=== PATIENT | male | born 1985 | race American Indian/Alaskan Native ===

== ENCOUNTER 2019-01-17 12:03 | Emergency (ER) | payer SELFPAY ==
[2019-01-17 12:08] VITALS: BP 106/79
--- NOTE | 2019-01-17 12:11 | Emergency Department Report ---
ED ENT HPI - General Chief complaint: Dental/Oral Stated complaint: LFT SIDE TOOTHACHE Source: patient Mode of arrival: Ambulatory Limitations: No Limitations - History of Present Illness Initial comments: 33 y/o male comes in for left lower tooth pain time 1 week with 1 day history of abscess. Denies any fever. Denies any trauma. No pmh . MD complaint: tooth pain Onset/Timin -: days(s) Location: tooth # (18) Severity scale (0 -10): 8 Consistency: constant Improves with: none Worsens with: none Context- Dental: history of dental caries, poor dental care - Related Data Previous Rx's Medication Instructions Recorded Last Taken Type Amoxicillin [Amoxicillin TAB] 875 mg PO BID #20 tablet 01/17/19 Unknown Rx Ibuprofen [Motrin 600 MG tab] 600 mg PO Q8H PRN #30 tablet 01/17/19 Unknown Rx Allergies Allergy/AdvReac Type Severity Reaction Status Date / Time No Known Allergies Allergy Unverified 01/17/19 12:05 ED Dental HPI - General Chief complaint: Dental/Oral Stated complaint: LFT SIDE TOOTHACHE Source: patient Mode of arrival: Ambulatory Limitations: No Limitations - Related Data Previous Rx's Medication Instructions Recorded Last Taken Type Amoxicillin [Amoxicillin TAB] 875 mg PO BID #20 tablet 01/17/19 Unknown Rx Ibuprofen [Motrin 600 MG tab] 600 mg PO Q8H PRN #30 tablet 01/17/19 Unknown Rx Allergies Allergy/AdvReac Type Severity Reaction Status Date / Time No Known Allergies Allergy Unverified 01/17/19 12:05 ED Review of Systems ROS: Stated complaint: LFT SIDE TOOTHACHE Other details as noted in HPI Comment: All other systems reviewed and negative ED Past Medical Hx - Medications Home Medications: Home Medications Medication Instructions Recorded Confirmed Last Taken Type Amoxicillin [Amoxicillin TAB] 875 mg PO BID #20 tablet 01/17/19 Unknown Rx Ibuprofen [Motrin 600 MG tab] 600 mg PO Q8H PRN #30 tablet 01/17/19 Unknown Rx ED Physical Exam - General Limitations: No Limitations General appearance: alert, in no apparent distress - Head Head exam: Present: atraumatic, normocephalic - Eye Eye exam: Present: normal appearance, EOMI - ENT ENT exam: Present: mucous membranes moist - Expanded ENT Exam Expanded Teeth exam: Present: dental caries, dental tenderness # (18), gingival enlargement - Neurological Exam Neurological exam: Present: alert, oriented X3, normal gait - Skin Skin exam: Present: warm, dry, intact, normal color. Absent: rash ED Medical Decision Making - Medical Decision Making 33 y/o male comes in for toothache. Patient will be placed on amoxicillin and pain medication. Critical care attestation.: If time is entered above; I have spent that time in minutes in the direct care of this critically ill patient, excluding procedure time. ED Disposition Clinical Impression: Dental abscess Disposition: TO HOME OR SELFCARE Is pt being admited?: No Does the pt Need Aspirin: No Condition: Stable Instructions: Dental Abscess (ED) Additional Instructions: Complete antibiotic and pain medication as prescribed. Prescriptions: Amoxicillin [Amoxicillin TAB] 875 mg PO BID #20 tablet Ibuprofen [Motrin 600 MG tab] 600 mg PO Q8H PRN #30 tablet PRN Reason: Pain Referrals: [facility] [Outside] - 3-5 Days [facility] [Outside] - 3-5 Days [facility] [Outside] - 3-5 Days
== END 2019-01-17 12:35 | disposition home or self-care (01) ==
LOC: ED 12:03
DX: K04.7 Periapical abscess without sinus (principal)
CPT/HCPCS: 99282

== ENCOUNTER 2019-11-24 11:21 | Emergency (ER) | payer SELFPAY ==
[2019-11-24 11:56] VITALS: BP 175/112
--- NOTE | 2019-11-24 12:09 | Emergency Department Report ---
ED ENT HPI - General Chief complaint: Dental/Oral Stated complaint: MOUTH PAIN Time Seen by Provider: 11/24/19 12:05 Source: patient Mode of arrival: Ambulatory Limitations: No Limitations - History of Present Illness Initial comments: pt is a 34 yo male who presents to the ED with c/o left lower dental pain that began yesterday. he states he also has pain and mild swelling to the left lower jaw. he has not seen a dentist since childhood. he denies any fever, n/v/d. he is tolerating PO intake and his secretions. he denies any PMHx. he denies any allergies to meds. - Related Data Previous Rx's Medication Instructions Recorded Last Taken Type Amoxicillin [Amoxicillin TAB] 875 mg PO BID #20 tablet 01/17/19 Unknown Rx Ibuprofen [Motrin 600 MG tab] 600 mg PO Q8H PRN #30 tablet 01/17/19 Unknown Rx Hydrocort/Pramoxine [Proctofoam-Hc] 1 applicatio [place] BID #1 can 01/29/19 Unknown Rx Lidocaine [Lidocaine Cream] 1 applicatio TP TID PRN #1 tube 01/29/19 Unknown Rx Ibuprofen [Motrin 600 MG tab] 600 mg PO Q8H PRN #14 tablet 11/24/19 Unknown Rx Penicillin Vk [Veetids TAB] 500 mg PO QID 7 Days #56 tablet 11/24/19 Unknown Rx Allergies Allergy/AdvReac Type Severity Reaction Status Date / Time No Known Allergies Allergy Verified 01/17/19 12:08 ED Dental HPI - General Chief complaint: Dental/Oral Stated complaint: MOUTH PAIN Time Seen by Provider: 11/24/19 12:05 Source: patient Mode of arrival: Ambulatory Limitations: No Limitations - Related Data Previous Rx's Medication Instructions Recorded Last Taken Type Amoxicillin [Amoxicillin TAB] 875 mg PO BID #20 tablet 01/17/19 Unknown Rx Ibuprofen [Motrin 600 MG tab] 600 mg PO Q8H PRN #30 tablet 01/17/19 Unknown Rx Hydrocort/Pramoxine [Proctofoam-Hc] 1 applicatio [place] BID #1 can 01/29/19 Unknown Rx Lidocaine [Lidocaine Cream] 1 applicatio TP TID PRN #1 tube 01/29/19 Unknown Rx Ibuprofen [Motrin 600 MG tab] 600 mg PO Q8H PRN #14 tablet 11/24/19 Unknown Rx Penicillin Vk [Veetids TAB] 500 mg PO QID 7 Days #56 tablet 11/24/19 Unknown Rx Allergies Allergy/AdvReac Type Severity Reaction Status Date / Time No Known Allergies Allergy Verified 01/17/19 12:08 ED Review of Systems ROS: Stated complaint: MOUTH PAIN Other details as noted in HPI Comment: All other systems reviewed and negative ED Past Medical Hx - Past Medical History Previous Medical History?: No - Surgical History Past Surgical History?: No - Social History Smoking Status: Current Every Day Smoker Substance Use Type: None - Medications Home Medications: Home Medications Medication Instructions Recorded Confirmed Last Taken Type Amoxicillin [Amoxicillin TAB] 875 mg PO BID #20 tablet 01/17/19 Unknown Rx Ibuprofen [Motrin 600 MG tab] 600 mg PO Q8H PRN #30 tablet 01/17/19 Unknown Rx Hydrocort/Pramoxine [Proctofoam-Hc] 1 applicatio [place] BID #1 can 01/29/19 Unknown Rx Lidocaine [Lidocaine Cream] 1 applicatio TP TID PRN #1 tube 01/29/19 Unknown Rx Ibuprofen [Motrin 600 MG tab] 600 mg PO Q8H PRN #14 tablet 11/24/19 Unknown Rx Penicillin Vk [Veetids TAB] 500 mg PO QID 7 Days #56 tablet 11/24/19 Unknown Rx ED Physical Exam - General Limitations: No Limitations General appearance: alert, in no apparent distress - Head Head exam: Present: atraumatic, normocephalic - Eye Eye exam: Present: normal appearance - ENT ENT exam: Present: mucous membranes moist, other (very poor dentition, several missing teeth and dental caries, mild area of induration present to the left lower gum line, uvula is midline, no uvular edema or deviation, no muffled voice, no trismus, no tongue elevation, no submandibular swelling) - Respiratory Respiratory exam: Present: normal lung sounds bilaterally. Absent: respiratory distress, wheezes, rales, rhonchi, stridor, chest wall tenderness, accessory muscle use, decreased breath sounds, prolonged expiratory - Cardiovascular Cardiovascular Exam: Present: regular rate, normal rhythm, normal heart sounds. Absent: systolic murmur, diastolic murmur, rubs, gallop - Neurological Exam Neurological exam: Present: alert, oriented X3 - Psychiatric Psychiatric exam: Present: normal affect, normal mood - Skin Skin exam: Present: warm, dry, intact ED Course Vital Signs 11/24/19 11:35 Temperature 99.0 F Pulse Rate 82 Respiratory 19 Rate Blood Pressure 175/112 O2 Sat by Pulse 99 Oximetry ED Medical Decision Making - Medical Decision Making pt is a 34 yo male who presents to the ED with c/o left lower dental pain that began yesterday. he states he also has pain and mild swelling to the left lower jaw. he has not seen a dentist since childhood. he denies any fever, n/v/d. he is tolerating PO intake and his secretions. he denies any PMHx. he denies any allergies to meds. Vitals with elevated blood pressure, otherwise stable. Patient is not having any symptoms related to his blood pressure could partially be due to discomfort from dental pain, will have patient follow-up with primary care doctor for reevaluation of blood pressure. on exam: very poor dentition, several missing teeth and dental caries, mild area of induration present to the left lower gum line, uvula is midline, no uvular edema or deviation, no muffled voice, no trismus, no tongue elevation, no submandibular swelling. Examination consistent with early dental abscess. Patient given prescription for penicillin VK and ibuprofen. Advised patient please take medication as prescribed. please follow up with a dentist. it is very important that you follow up with a dentist for a permanent solution. return to the emergency room for any new or worsening symptoms. - Differential Diagnosis Dentalgia, dental caries, dental abscess, Ludwigs, peritonsillar abscess Critical care attestation.: If time is entered above; I have spent that time in minutes in the direct care of this critically ill patient, excluding procedure time. ED Disposition Clinical Impression: Dental caries, Dental abscess Disposition: - TO HOME OR SELFCARE Is pt being admited?: No Does the pt Need Aspirin: No Condition: Stable Instructions: Dental Abscess (ED), Dental Caries (ED) Additional Instructions: please take medication as prescribed. please follow up with a dentist. it is very important that you follow up with a dentist for a permanent solution. return to the emergency room for any new or worsening symptoms. Prescriptions: Ibuprofen [Motrin 600 MG tab] 600 mg PO Q8H PRN #14 tablet PRN Reason: Pain Penicillin Vk [Veetids TAB] 500 mg PO QID 7 Days #56 tablet Referrals: [facility] [Outside] - 3-5 Days [facility] [Outside] - 3-5 Days Forms: Work/School Release Form(ED) Time of Disposition: 12:16 Print Language: LAO
[2019-11-24] MEDS ORDERED: IBUPROFEN 600 MG TAB PO ONE (12:57)
== END 2019-11-24 13:04 | disposition home or self-care (01) ==
LOC: ED 11:21
DX: K08.89 Other specified disorders of teeth and supporting structures (principal)
CPT/HCPCS: 99282